=== PATIENT | male | born 1980 | race Caucasian/White ===

== ENCOUNTER → 2018-01-14 | Outpatient (CLI) | payer BC ==
[2015-07-24 16:19] VITALS: BP 167/84
[~2018-01-14] MED LIST: BARIUM SULFATE 60% 355 ML SUSP PO ONE
--- NOTE | 2018-01-14 18:11 | RAD ---
AP abdomen radiographs 01/14/2018 CLINICAL HISTORY: Diarrhea and nausea for one month. History of gastroparesis. TECHNIQUE: A small bowel follow-through study was performed under radiographic control. No spot radiographs were obtained. FINDINGS: 2 AP supine portable digital radiographs of the abdomen/pelvis were obtained as kiln door repairer radiographs. These demonstrate a nonobstructive bowel gas pattern. A moderate amount of stool is seen throughout the colon. No radiopaque calculus is seen. The osseous structures are grossly intact. The mucosal pattern of the duodenum, jejunum, ileum and terminal ileum are within normal limits. The small bowel transit time is within normal limits. The cecum is in its normal location within the right lower quadrant of the abdomen. No extrinsic mass effect upon the small bowel is seen. IMPRESSION: Negative study. Electronically signed by: Shamar Galan MD (01/14/2018 6:08 PM) [id number]
== END | disposition home or self-care (01) ==
LOC: RAD 07:41
PROVIDERS: ATTEND Internal Medicine Gastroenterology
DX: A08.8 Other specified intestinal infections (principal); K31.84 Gastroparesis; I10 Essential (primary) hypertension
CPT/HCPCS: 74250

== ENCOUNTER → 2020-04-18 | Outpatient (CLI) | payer BC ==
[2015-07-24 16:19] VITALS: BP 167/84
--- NOTE | 2020-04-18 17:07 | CARD ---
MR#: [id number] Date of Study: 04/18/2020 Ordering Physician: BECKY WEST, Referring Physician: BECKY WEST, Tech: Lindsey Conklin APPROVED REPORT EXAM: Two-dimensional and M-mode echocardiogram with Doppler and color Doppler. Other Information Quality : AverageHR: 70bpm Technically limited study due to body habitus. INDICATION Hypertension/HCVD RISK FACTORS Previous smoker 2D DIMENSIONS RVDd4.3 (2.9-3.5cm)Left Atrium(2D)4.0 (1.6-4.0cm) IVSd1.2 (0.7-1.1cm)Aortic Root(2D)3.0 (2.0-3.7cm) LVDd5.8 (3.9-5.9cm)LVOT Diameter2.2 (1.8-2.4cm) PWd1.1 (0.7-1.1cm)LVDs4.3 (2.5-4.0cm) FS (%) 25.8 %SV82.1 ml LVEF(%)50.0 (>50%) Aortic Valve AoV Peak Jameel.150.4cm/sAoV VTI34.3cm AO Peak GR.9.1mmHgLVOT Peak Jameel.116.3cm/s LVOT VTI 23.15cmAO Mean GR.5mmHg MIGUELINA (VMAX)2.64js8TSN (VTI)2.46cm2 Mitral Valve MV E Mbkvdihu87.1cm/sMV E Peak Gr.3mmHg MV DECEL [id number] A Ykfkyjdt44.3cm/s MV E Mean Gr.2mmHgE/A Ratio1.0 Pulmonary Valve PV Peak Wvtmnhrb30.4cm/sPV Peak Grad.3mmHg Tricuspid Valve TR P. Ygdxgpca473cl/sRAP ZKLLYOHU5bcCe TR Peak Gr.93hgRqGUVH97irNx Pulmonary Vein S1 Zkymmaml06.4cm/sD2 Bzhdxgnd62.3cm/s LEFT VENTRICLE The left ventricle is normal size. There is mild concentric left ventricular hypertrophy. The left ve ntricular systolic function is normal and the ejection fraction is within normal range. The Ejection Fraction is 55%. There is normal LV segmental wall motion. Transmitral Doppler flow pattern is Grade II-pseudonormal filling dynamics. RIGHT VENTRICLE The right ventricle is borderline dilated. There is normal right ventricular wall thickness. The righ t ventricular systolic function is normal. ATRIA The left atrium size is normal. The right atrium size is normal. The interatrial septum is intact wit h no evidence for an atrial septal defect or patent foramen ovale as noted on 2-D or Doppler imaging. AORTIC VALVE The aortic valve is normal in structure and function. Doppler and Color Flow revealed no significant aortic regurgitation. There is no significant aortic valvular stenosis. Calculated aortic valve area is 2.5 cm2 with maximum pressure gradient of 9 mmHg and mean pressure gradient of 5 mmHg. MITRAL VALVE The mitral valve is normal in structure and function. There is no evidence of mitral valve prolapse. There is no mitral valve stenosis. Doppler and Color Flow revealed no mitral valve regurgitation note d. TRICUSPID VALVE The tricuspid valve is normal in structure and function. Doppler and Color Flow revealed trace tricus pid regurgitation with an estimated PAP of 33 mmHg. There is no tricuspid valve stenosis. PULMONIC VALVE The pulmonic valve is not well visualized. Doppler and Color Flow revealed trace pulmonic valvular re gurgitation. There is no pulmonic valvular stenosis. GREAT VESSELS The aortic root is normal in size. The ascending aorta is normal in size. The IVC was not visualized. PERICARDIAL EFFUSION There is no evidence of significant pericardial effusion. Critical Notification Critical Value: No <Conclusion> The left ventricular systolic function is normal and the ejection fraction is within normal range. Th e Ejection Fraction is 55%. There is normal LV segmental wall motion. Signed by : Aaron Pal, Electronically Approved : 04/18/2020 17:06:54
== END ==
LOC: ECHO 13:22
PROVIDERS: ATTEND Family Medicine
DX: I11.9 Hypertensive heart disease without heart failure (principal)
CPT/HCPCS: 93306

== ENCOUNTER 2021-04-29 16:31 | Emergency (ER) | payer BC ==
[~2021-04-29] VITALS: Ht 190.5 cm; Wt 145.0 kg
[2021-04-29 17:00] VITALS: BP 162/95
[2021-04-29] MEDS ORDERED: ONDANSETRON ODT 4 MG TAB.RAPDIS PO ONE (17:00)
--- NOTE | 2021-04-29 17:28 | PHYS DOC ---
Past History Past Medical History: Diabetes, Hypertension (BRITTNEY ARCINIEGA Sondra TOOL SETTER APPRENTICE) Past Surgical History: No Surgical History (BRITTNEY ARCINIEGA TOOL SETTER APPRENTICE) Smoking: Non-smoker Alcohol Use: None Drug Use: None (BRITTNEY ARCINIEGA MIRIAN) Adult General Chief Complaint Chief Complaint: COUGH HPI HPI Patient is a man with a history of hypertension, prediabetes, who presents to the ED today complaining of sore throat, dry cough, symptoms began yesterday. Patient denies any headache, reports fever highest temperature 99.6. Reports being vaccinated against Covid last dose of Moderna vaccine was in August 2020. (BRITTNEY ARCINIEGA TOOL SETTER APPRENTICE) Review of Systems Review of Systems Constitutional: Reports fever Eyes: Denies change in visual acuity, redness, or eye pain [] HENT: Reports sore throat. Denies nasal congestion Respiratory: Reports cough, denies shortness of breath [] Cardiovascular: No additional information not addressed in HPI [] GI: Denies abdominal pain, nausea, vomiting, bloody stools or diarrhea [] : Denies dysuria or hematuria [] Musculoskeletal: Denies back pain or joint pain [] Integument: Denies rash or skin lesions [] Neurologic: Denies headache, focal weakness or sensory changes [] All other systems were reviewed and found to be within normal limits, except as documented in this note. (BRITTNEY ARCINIEGA TOOL SETTER APPRENTICE) Current Medications Current Medications Current Medications Medications (Trade) Dose Ordered Sig/Cristobal Start Time Stop Time Status Last Admin Dose Admin Ondansetron HCl (Zofran Odt) 4 mg 1X ONCE 04/29/21 17:00 04/29/21 17:01 DC (BRITTNEY ARCINIEGA TOOL SETTER APPRENTICE) Allergies Allergies Allergies Coded Allergies Type Severity Reaction Last Updated Verified No Known Drug Allergies 07/10/15 No (BRITTNEY ARCINIEGA TOOL SETTER APPRENTICE) Physical Exam Physical Exam Constitutional: Well developed, well nourished, no acute distress, non-toxic eli earance. [] HENT: Normocephalic, atraumatic, bilateral external ears normal, oropharynx moist, no oral exudates, nose normal. [] Eyes: PERRLA, EOMI, conjunctiva normal, no discharge. [] Neck: Normal range of motion, no tenderness, supple, no stridor. [] Cardiovascular:Heart rate regular rhythm, no murmur [] Lungs & Thorax: Bilateral breath sounds clear to auscultation [] Abdomen: Bowel sounds normal, soft, no tenderness, no masses, no pulsatile masses. [] Skin: Warm, dry, no erythema, no rash. [] Back: No tenderness, no CVA tenderness. [] Extremities: No tenderness, no cyanosis, no clubbing, ROM intact, no edema. [] Neurologic: Alert and oriented X 3, normal motor function, normal sensory function, no focal deficits noted. [] Psychologic: Affect normal, judgement normal, mood normal. [] (BRITTNEY ARCINIEGA APRN) Current Patient Data Vital Signs Vital Signs Date Time Temp Pulse Resp B/P (MAP) Pulse Ox O2 Delivery O2 Flow Rate FiO2 04/29/21 16:57 162/95 (117) 04/29/21 16:50 100.3 106 22 99 Room Air (BRITTNEY ARCINIEGA APRN) EKG EKG [] (BRITTNEY ARCINIEGA APRN) Radiology/Procedures Radiology/Procedures []PROCEDURE: CHEST AP ONLY EXAM: CHEST ONE VIEW. HISTORY: Cough. COMPARISON: None. FINDINGS: A frontal view of the chest is obtained. There are no confluent infiltrates. There is no pneumothorax or pleural effusion. The heart is not enlarged. IMPRESSION: 1. No confluent infiltrates. Electronically signed by: Papo Perez MD (04/29/2021 5:32 PM) [facility] DICTATED AND SIGNED BY: WENDI PEREZ MD DATE: 04/29/211731 CC: BECKY WEST MD; BRITTNEY ARCINIEGA APRN ~MTH0 0 (BRITTNEY ARCINIEGA APRN) Heart Score C/O Chest Pain: N/A Risk Factors: Risk Factors: DM, Current or recent (<one month) smoker, HTN, HLP, family history of CAD, obesity. Risk Scores: Risk Factors: DM, Current or recent (<one month) smoker, HTN, HLP, family history of CAD, obesity. (BRITTNEY ARCINIEGA APRN) Course & Med Decision Making Course & Med Decision Making Pertinent Labs and Imaging studies reviewed. (See chart for details) This is a 40-year-old male patient presented to the ED today complaining of fever, cough and sore throat, symptoms began today Temperature in the ED 100.3, O2 sats 99% on room air. Chest x-ray negative for any acute findings, negative influenza A&B, negative rapid strep Symptoms could be viral. Supportive care measures recommended. Patient has good follow-up. Provided return precautions and discharged in stable condition (BRITTNEY ARCINIEGA MIRIAN) Dragon Disclaimer Dragon Disclaimer This electronic medical record was generated, in whole or in part, using a voice recognition dictation system. (BRITTNEY ARCINIEGA Sondra VELA) Attending Co-Sign The patient was seen and interviewed as well as examined at the bedside. The chart was reviewed. The case was discussed. Agree with the plan of care. (LISANDRA TERRELL DO) Departure Departure: Impression: Primary Impression: Fever Additional Impressions: Cough Pharyngitis, acute Person under investigation for COVID-19 Disposition: HOME / SELF CARE / HOMELESS Condition: STABLE Referrals: BECKY WEST MD (PCP) follow up in the course of this week Patient Instructions: Cough, Adult, Hijo-sh-Umzo, Fever, Adult, Cdbr-ts-Aqod, Viral Pharyngitis Additional Instructions: You were evaluated in the emergency room for fever cough and sore throat. Your rapid strep test is negative, your rapid influenza A and B are negative. Your chest x-ray is negative for pneumonia. Your Covid test is pending. Please quarantine yourself until results are back. Please rest, push fluids, take Tylenol or Motrin for pain or fever. Maintain good hand hygiene. Follow-up with your doctor in the course of this week Scripts Guaifenesin/Codeine Phosphate (MAR-COF CG LIQUID) 473 Ml Liquid 5 ML PO Q6HRS, #120 LIQUID Prov: BRITTNEY ARCINIEGA MIRIAN 04/29/21 Problem Qualifiers Primary Impression: Fever Fever type: unspecified Qualified Codes: R50.9 - Fever, unspecified Additional Impressions: Pharyngitis, acute Pharyngitis/tonsillitis etiology: unspecified etiology Qualified Codes: J 02.9 - Acute pharyngitis, unspecified BRITTNEY ARCINIEGA MIRIAN Apr 29, 2021 17:27 LISANDRA TERRELL DO May 01, 2021 13:04
--- NOTE | 2021-04-29 17:35 | RAD ---
EXAM: CHEST ONE VIEW. HISTORY: Cough. COMPARISON: None. FINDINGS: A frontal view of the chest is obtained. There are no confluent infiltrates. There is no pneumothorax or pleural effusion. The heart is not en larged. IMPRESSION: 1. No confluent infiltrates. Electronically signed by: Papo Perez MD (04/29/2021 5:32 PM) [facility]
[2021-04-29 18:07] LABS: INFLUENZA A PATIENT NEGATIVE (NEGATIVE); INFLUENZA B PATIENT NEGATIVE (NEGATIVE)
[2021-04-29] MEDS ORDERED: [UNRECOGNIZED DRUG - CODE] PO (18:20)
== END 2021-04-29 18:37 | disposition home or self-care (01) ==
LOC: ER 16:31
DX: J02.9 Acute pharyngitis, unspecified (principal); E11.9 Type 2 diabetes mellitus without complications; I10 Essential (primary) hypertension; Z20.822 Contact with and (suspected) exposure to COVID-19
CPT/HCPCS: 71045; 87070; 87804; 87880; 99284; C9803; Q0162; U0003